=== PATIENT | male | born 1955 | race Caucasian/White ===

== ENCOUNTER → 2016-12-07 | Outpatient (CLI) | payer OTHER | LOC: BMCIMAGING 14:08 | PROVIDERS: ATTEND Nurse Practitioner Adult Health | DX: R05 Cough (principal); R09.02 Hypoxemia; R91.8 Other nonspecific abnormal finding of lung field ==

== ENCOUNTER → 2018-09-05 | Outpatient (CLI) | payer OTHER ==
--- NOTE | 2018-09-05 09:40 | GOP ---
DATE OF OPERATION: 09/05/2018 SURGEON: Tico Hyde MD PREOPERATIVE DIAGNOSIS: Enlarged prostate. POSTOPERATIVE DIAGNOSIS: Enlarged prostate. PROCEDURE PERFORMED: Transrectal ultrasound. FINDINGS: DESCRIPTION OF PROCEDURE: The patient was counseled as to the need for this procedure to evaluate marshal pickard for further procedures related to his enlarged prostate. A transrectal ultrasound probe was introd uced and 4 images were obtained. The prostate was measured a volume of 53.5 mL, with measurements of 4.5 x 4.6 x 5.0 cm. No significant lesions were appreciated. The patient tolerated the procedure w ell and will follow up in my office for additional therapy. /[id number]/MODL
== END ==
LOC: BMCIMAGING 07:52
PROVIDERS: ATTEND Urology
DX: N42.9 Disorder of prostate, unspecified (principal)